=== PATIENT | female | born 1940 | race Caucasian/White ===

== ENCOUNTER 2016-08-25 09:11 | Outpatient (CLI) | payer MEDICARE, OTHER ==
[2016-08-25 09:37] LABS: Hemoglobin A1c 6.7 % (4.0-6.0)
[2016-08-25 09:51] LABS: ALT (SGPT) 11 U/L (0-55); AST (SGOT) 13 U/L (5-34); Albumin 4.1 g/dL (3.4-4.8); Alkaline Phosphatase 126 U/L (40-150); Anion Gap 16 mmol/L (10-20); BUN (Urea Nitrogen) 6 mg/dL (9.8-20.1); Bilirubin, Total 0.4 mg/dL (0.2-1.2); Calc. Creatinine Clearance 0 mL/min (70-130); Calcium 9.9 mg/dL (7.8-10.44); Carbon Dioxide 28 mmol/L (23-31); Chloride 100 mmol/L (98-107); Estimated GFR-MDRD 80; Globulin 3.2 g/dL (2.4-3.5); Glucose 137 mg/dL (83-110); Potassium 4.2 mmol/L (3.5-5.1); Protein, Total 7.3 g/dL (5.8-8.1); Sodium 140 mmol/L (136-145)
== END 2016-08-25 09:12 | disposition home or self-care (01) ==
LOC: MADLABBHPM 09:11
PROVIDERS: ATTEND Family Medicine
DX: E03.9 Hypothyroidism, unspecified (principal); E11.9 Type 2 diabetes mellitus without complications
CPT/HCPCS: 36415; 80053; 83036; 84443

== ENCOUNTER 2018-02-19 21:00 | Emergency (ER) | payer MEDICARE, BC ==
[2018-02-19] MEDS ORDERED: Fleet Enema 133 ML BOT ONE (21:26)
[2018-02-19] MEDS ORDERED: Mineral Oil ENEMA ONE (21:26)
== END 2018-02-19 22:57 | disposition home or self-care (01) ==
LOC: MADERS 21:00
DX: K59.00 Constipation, unspecified (principal); E11.9 Type 2 diabetes mellitus without complications; I10 Essential (primary) hypertension; E78.5 Hyperlipidemia, unspecified; G30.9 Alzheimer's disease, unspecified; F02.80 Dementia in other diseases classified elsewhere, unspecified severity, without behavioral disturbance, psychotic disturbance, mood disturbance, and anxiety
CPT/HCPCS: 99283

== ENCOUNTER 2020-07-10 10:33 | Outpatient (CLI) | payer MEDICARE, BC ==
--- NOTE | 2020-07-10 11:16 | RAD ---
EXAM: Two views chest PROVIDED CLINICAL HISTORY: Acute URI COMPARISON: 11/16/2017 FINDINGS: Cardiac silhouette is at the upper limits of normal in size. Pulmonary vasculature is within normal l imits. There is an irregular nodular density seen in the region of the lingula not seen on prior exam. This could be related to focal area of pneumonitis. Follow-up to resolution is recommended. The lungs otherwise appear clear aside from minimal asymmetric left apical pleural and parenchymal scarring. No pleural effusion or area of consolidation is identified. Multilevel degenerative changes are seen in the spine. IMPRESSION: Irregular nodular density in the region of the lingula. This could be related to focal area of pneum onitis, follow-up is recommended to ensure resolution and exclude possibility of a neoplastic process..
== END 2020-07-10 10:34 | disposition home or self-care (01) ==
LOC: MADRAD 10:33
PROVIDERS: ATTEND Family Medicine
DX: J06.9 Acute upper respiratory infection, unspecified (principal); R91.8 Other nonspecific abnormal finding of lung field
CPT/HCPCS: 71046

== ENCOUNTER 2020-07-24 08:29 | Outpatient (CLI) | payer MEDICARE, BC ==
--- NOTE | 2020-07-24 08:43 | RAD ---
CHEST 2 VIEWS: Date: 07/24/2020 HISTORY: Acute interstitial pneumonitis. COMPARISON: Radiograph dated 07/10/2020. FINDINGS: Heart size mildly enlarged. No pneumothorax. No effusion. Subperipheral nodule in the right upper lobe measuring 4-5 mm. Mild background lung hyperinflation. No acute osseous abnormality. IMPRESSION: 4-5 mm possible nodule projecting in the right upper lobe, for which a nonemergency chest CT is recom mended. CODE T. POS: [facility]
== END 2020-07-24 08:30 | disposition home or self-care (01) ==
LOC: MADRAD 08:29
PROVIDERS: ATTEND Family Medicine
DX: J84.114 Acute interstitial pneumonitis (principal)
CPT/HCPCS: 71046

== ENCOUNTER 2021-04-19 12:32 | Emergency (ER) | payer MEDICARE, BC ==
[2021-04-19 13:11] LABS: #Basophils 0.1 thou/uL (0.0-0.2); #Eosinphils 0.1 thou/uL (0.0-0.7); #Lymphocytes 1.3 thou/uL (1.20-3.40); #Monocytes 1.4 thou/uL (0.11-0.59); #Neutrophils 10.4 thou/uL (1.40-6.50); %Basophils 0.7 % (0.0-1.0); %Eosinophils 0.8 % (0.0-10.0); %Lymphocytes 9.8 % (21.0-51.0); %Monocytes 10.4 % (0.0-10.0); %Neutrophils 78.3 % (42.0-75.0); Hemoglobin 11.6 g/dL (12.0-16.0); Mean Corpuscular HGB CONC 32.5 g/dL (32.0-36.0); Mean Corpuscular Hemoglobin 27.4 pg (27.0-31.0); Mean Corpuscular Volume 84.3 fL (78.0-98.0); Mean Platelet Volume 6.7 fL (7.4-10.4); Platelet Count 323 thou/uL (130-400); RBC Distribution Width 12.6 % (11.5-14.5); Red Blood Cell (RBC) Count 4.22 mill/uL (4.20-5.40); White Blood Cell (WBC) Count 13.3 thou/uL (4.8-10.8)
[2021-04-19] MEDS ORDERED: Ondansetron ODT 4 MG TAB ONE (13:12)
[2021-04-19] MEDS ORDERED: Ondansetron PF 4 MG/2 ML Vial ONE (13:12)
[2021-04-19 13:26] LABS: ALT (SGPT) 34 U/L (8-55); AST (SGOT) 35 U/L (5-34); Albumin 3.5 g/dL (3.4-4.8); Alkaline Phosphatase 148 U/L (40-110); Anion Gap 17 mmol/L (10-20); BUN (Urea Nitrogen) 14 mg/dL (9.8-20.1); Bilirubin, Total 1.1 mg/dL (0.2-1.2); CK (CPK) 135 U/L (29-168); Calc. Creatinine Clearance 0 mL/min (70-130); Calcium 9.5 mg/dL (7.8-10.44); Carbon Dioxide 21 mmol/L (23-31); Chloride 94 mmol/L (98-107); Globulin 3.3 g/dL (2.4-3.5); Glucose 279 mg/dL (83-110); Protein, Total 6.8 g/dL (5.8-8.1); Sodium 128 mmol/L (136-145)
[2021-04-19 13:43] LABS: CKMB 1.4 ng/mL (0-6.6)
[2021-04-19 13:46] LABS: Bilirubin Negative (Negative); Blood, Urine Negative (Negative); Clarity Clear (Clear); Glucose, Urine (Dipstick) >=1000 mg/dL (Negative); Ketone, Urine Negative (Negative); Leukocyte Negative (Negative); Nitrite Negative (Negative); Protein, Urine (Dipstick) 30 mg/dL (Neg-Trace); Specific Gravity, Urine 1.015 (1.005-1.030); pH, Urine 5.5 (5.0-9.0)
[2021-04-19] MEDS ORDERED: Sodium Chloride 0.9% 250 ML 250 ML ONE (13:47)
[2021-04-19] MEDS ORDERED: Sodium Chloride 0.9% 200 ML ONE (13:47)
[2021-04-19] MEDS ORDERED: Vancomycin HCl 750 MG VIAL ONE (13:47)
[2021-04-19] MEDS ORDERED: cefTRIAXone\\ROCEPHIN 2 GM VIAL ONE (13:47)
[2021-04-19] MEDS ORDERED: Vancomycin HCl 500 MG VIAL ONE (13:47)
[2021-04-19 13:53] LABS: Bacteria/HPF Rare-Few HPF (None Seen); Mucous/LPF 1+ LPF (<2+); RBC/HPF None Seen HPF (0-3); Squamous Epithelial 0-3 HPF (0-3); WBC/HPF None Seen HPF (0-3)
[2021-04-19 15:13] LABS: Magnesium 1.5 mg/dL (1.6-2.6)
[2021-04-19] MEDS ORDERED: Magnesium 2 GM/50 ML BAG (IN WATER) ONE (15:30)
== END 2021-04-19 17:04 | disposition short-term general hospital (02) ==
LOC: MADERS 12:32
DX: R55 Syncope and collapse (principal); I47.2 Ventricular tachycardia; E78.5 Hyperlipidemia, unspecified; E78.00 Pure hypercholesterolemia, unspecified; I48.91 Unspecified atrial fibrillation; E11.65 Type 2 diabetes mellitus with hyperglycemia; E87.1 Hypo-osmolality and hyponatremia; I10 Essential (primary) hypertension; E03.9 Hypothyroidism, unspecified; D72.829 Elevated white blood cell count, unspecified; Z79.82 Long term (current) use of aspirin; Z79.899 Other long term (current) drug therapy; Z79.84 Long term (current) use of oral hypoglycemic drugs
CPT/HCPCS: 36415; 51702; 70450; 71045; 80053; 81003; 81015; 82550; 82553; 83605; 83735; 84484; 85025; 86140; 87040; 87086; 93005; 96365; 96366; 96367; 96368; 96375; J0696; J2405; J3370; J3475; J3490; J7050; Q0162